=== PATIENT | male | born 1995 | race Caucasian/White ===

== ENCOUNTER 2022-01-13 23:22 | Emergency (ER) | payer BC ==
[~2022-01-13] VITALS: Ht 185.4 cm; Wt 127.3 kg
[2022-01-13 23:32] VITALS: TEMP 97.5
[2022-01-14 01:15] VITALS: BP 142/78; PULSE 76
== END 2022-01-14 01:20 | disposition home or self-care (01) ==
LOC: COL.ER 23:22
DX: F12.10 Cannabis abuse, uncomplicated (principal); Z88.0 Allergy status to penicillin; Z28.310 Unvaccinated for COVID-19